=== PATIENT | female | born 1950 | race Caucasian/White ===

== ENCOUNTER 2021-05-23 10:56 | Day surgery (SDC) | payer MEDICARE, OTHER ==
[~2021-05-23 10:56] MED LIST: Acetaminophen 325 MG Tab PO SCH; Lactated Ringers 1,000 ML IV SCH; Lidocaine 1%/Sod Bicarbonate in NS 8.4% 1 ML Syringe IDERM PRN; Pregabalin 25 MG Cap PO SCH; Sodium Chloride 0.9% 10 ML Syringe FLUSH PRN; Sodium Chloride 0.9% 10 ML Syringe FLUSH SCH; oxyCODONE ER 10 MG TAB.ER PO SCH
[2021-05-23] MEDS ORDERED: Propofol 200 MG/20 ML SDV ONE ×2 (11:07→13:09)
[2021-05-23] MEDS ORDERED: Midazolam 1 MG/ML 2 ML SDV ONE (11:08)
[2021-05-23] MEDS ORDERED: fentaNYL 100 MCG/2 ML SDV ONE (11:08)
[2021-05-23] MEDS ORDERED: ceFAZolin 1 GM Vial ONE (12:05)
[2021-05-23] MEDS ORDERED: Lidocaine 1% 5 ML VIAL ONE (12:09)
[2021-05-23] MEDS: Morphine 8 MG, EPINEPHrine 0.3 MG, Cefuroxime 750 MG, Ketorolac 30 MG, Sodium Chloride ... PRN ×10 (12:43→13:05)
[2021-05-23] MEDS: Vancomycin 1 GM SDV ONE ×2 (12:43→13:05)
[2021-05-23] MEDS ORDERED: traMADol 50 MG Tab PO PRN (15:11)
[2021-05-23] MEDS: traMADol 50 MG Tab PO PRN ×2 (15:22→16:16)
[2021-05-23 16:47] VITALS: BP 154/95; PULSE 74
== END 2021-05-23 16:45 | disposition home or self-care (01) ==
LOC: JD.SDS 10:56
PROVIDERS: ATTEND Orthopaedic Surgery
DX: M16.11 Unilateral primary osteoarthritis, right hip (principal); E78.00 Pure hypercholesterolemia, unspecified; I12.9 Hypertensive chronic kidney disease with stage 1 through stage 4 chronic kidney disease, or unspecified chronic kidney disease; N18.9 Chronic kidney disease, unspecified; E03.9 Hypothyroidism, unspecified; E66.9 Obesity, unspecified; Z98.890 Other specified postprocedural states; Z88.8 Allergy status to other drugs, medicaments and biological substances; Z88.2 Allergy status to sulfonamides; Z79.890 Hormone replacement therapy; Z79.899 Other long term (current) drug therapy; Z68.42 Body mass index [BMI] 45.0-49.9, adult
CPT/HCPCS: 27130; 36415; 73501; 86850; 86900; 86901; 97110; 97116; 97161; A9270; C1713; C1776; J0171; J0690; J0697; J1885; J2250; J2270; J2370; J2704; J3010; J3370; J7030; J7120; 01214; 99100

== ENCOUNTER 2021-11-21 06:48 | Day surgery (SDC) | payer MEDICARE, OTHER ==
[~2021-11-21 06:48] MED LIST changes: -Acetaminophen 325 MG Tab PO SCH; +Morphine 8 MG, EPINEPHrine 0.3 MG, Cefuroxime 750 MG, Ketorolac 30 MG, Sodium Chloride ... PRN; -Pregabalin 25 MG Cap PO SCH; +Vancomycin 1 GM SDV ONE; -oxyCODONE ER 10 MG TAB.ER PO SCH
[2021-11-21] MEDS ORDERED: Ondansetron 4 MG/2 ML SDV IVPUSH PRN (07:12)
[2021-11-21] MEDS ORDERED: HYDROmorphone 0.5 MG/0.5 ML Syringe IVPUSH PRN (07:12)
[2021-11-21] MEDS ORDERED: fentaNYL 100 MCG/2 ML SDV IVPUSH PRN (07:12)
[2021-11-21] MEDS ORDERED: Midazolam 1 MG/ML 2 ML SDV ONE (07:21)
[2021-11-21] MEDS ORDERED: fentaNYL 100 MCG/2 ML SDV ONE (07:22)
[2021-11-21] MEDS ORDERED: Propofol 200 MG/20 ML SDV ONE ×2 (07:24→07:25)
[2021-11-21] MEDS ORDERED: Succinylcholine 200 MG/10 ML MDV ONE (08:33)
[2021-11-21] MEDS ORDERED: Ondansetron 4 MG/2 ML SDV ONE (08:47)
[2021-11-21] MEDS ORDERED: HYDROmorphone 0.5 MG/0.5 ML Syringe ONE ×4 (08:48→09:24)
[2021-11-21] MEDS ORDERED: ePHEDrine 50 MG/ML SDV ONE (08:49)
[2021-11-21] MEDS ORDERED: ceFAZolin 2 GM Vial ONE (08:53)
[2021-11-21] MEDS ORDERED: Labetalol 100 MG/20 ML MDV ONE (09:37)
[2021-11-21] MEDS ORDERED: traMADol 50 MG Tab PO SCH (10:58)
[2021-11-21 15:41] VITALS: BP 114/68; PULSE 65
== END 2021-11-21 14:35 | disposition home or self-care (01) ==
LOC: JD.SDS 06:48
PROVIDERS: ATTEND Orthopaedic Surgery
DX: M16.0 Bilateral primary osteoarthritis of hip (principal); E78.00 Pure hypercholesterolemia, unspecified; E03.9 Hypothyroidism, unspecified; I12.9 Hypertensive chronic kidney disease with stage 1 through stage 4 chronic kidney disease, or unspecified chronic kidney disease; N18.9 Chronic kidney disease, unspecified; Z78.0 Asymptomatic menopausal state; Z79.890 Hormone replacement therapy; Z79.899 Other long term (current) drug therapy; Z88.8 Allergy status to other drugs, medicaments and biological substances; Z88.1 Allergy status to other antibiotic agents; Z98.890 Other specified postprocedural states
CPT/HCPCS: 01214; 36415; 73501-26-LT; 73501-LT; 86850; 86900; 86901; 97110-GP; 97116-GP; 97161-GP; C1713; C1776; J0171; J0330; J0690; J0697; J1170; J1885; J2250; J2270; J2405; J2704; J3010; J3370; J3490; J7120